=== PATIENT | male | born 1985 | race Caucasian/White ===

== ENCOUNTER 2021-10-04 06:51 | Day surgery (SDC) | payer OTHER ==
[2021-09-30 16:46] LABS: BASOPHILS # (AUTO) 0.1 X10'3 (0-0.2); BASOPHILS % (AUTO) 0.8 % (0-1); EOSINOPHILS # (AUTO) 0.1 X10'3 (0-0.9); EOSINOPHILS % (AUTO) 1.2 % (0-6); LYMPHOCYTES # (AUTO) 2.4 X10'3 (1.1-4.8); LYMPHOCYTES % (AUTO) 28.1 % (21-51); MEAN CORPUSCULAR HEMOGLOBIN 28.4 PG (27.0-31.0); MEAN CORPUSCULAR HGB CONC 33.1 g/dL (33.0-36.5); MEAN CORPUSCULAR VOLUME 85.9 FL (78-98); MEAN PLATELET VOLUME 8.1 FL (7.4-10.4); MONOCYTES # (AUTO) 0.6 X10'3 (0-0.9); NEUTROPHILS # (AUTO) 5.3 X10'3 (1.8-7.7); NEUTROPHILS % (AUTO) 62.9 % (42-75); PRE OP HEMATOCRIT 42.1 % (42.0-52.0); PRE OP HEMOGLOBIN 13.9 g/dL (14.0-17.9); PRE OP PLATELET COUNT 229 X10'3 (140-440); RED CELL DISTRIBUTION WIDTH 13.3 % (11.5-14.5)
[2021-09-30 16:59] LABS: ALBUMIN 4.1 G/DL (3.4-5.0); ALBUMIN/GLOBULIN RATIO 1.4 (1.1-1.5); ALKALINE PHOSPHATASE 68 IU/L (46-116); BLOOD UREA NITROGEN 22 MG/DL (7-18); BUN/CREATININE RATIO 18.2 (5.4-32.0); CALCIUM 8.8 MG/DL (8.5-10.1); CHLORIDE 105 MMOL/L (99-107); CREATININE 1.21 MG/DL (0.60-1.10); PRE OP ALT 23 U/L (30-65); PRE OP ANION GAP 4 (8-16); PRE OP AST 23 U/L (10-37); PRE OP BILIRUB, TOTAL 0.3 MG/DL (0.0-1.0); PRE OP GLUCOSE 83 MG/DL (70-104); PRE OP POTASSIUM 4.5 MMOL/L (3.4-5.1); PRE OP SODIUM 140 MMOL/L (135-145); TOTAL CARBON DIOXIDE 31.1 MMOL/L (24-32); TOTAL PROTEIN 7.1 G/DL (6.4-8.2); eGFR 68 ML/MIN
[~2021-10-04] VITALS: Ht 185.4 cm; Wt 94.3 kg
[~2021-10-04 06:51] MED LIST: NO HOME MEDS; cefazolin/dext.iso 2gm/50ml IV ONE; famotidine 20mg tablet PO ONE; ringers solution, lacted 1,000 ML IV SCH
[2021-10-04 07:20] VITALS: BP 116/70
[2021-10-04] MEDS ORDERED: labetalol 20mg/4ml (5mg/ml) syringe IV PRN (08:00)
[2021-10-04] MEDS ORDERED: ondansetron/PF 4mg/2ml inj IV PRN (08:00)
[2021-10-04] MEDS ORDERED: morphine 2 MG/ML inj. syringe IV PRN (08:00)
[2021-10-04] MEDS ORDERED: morphine 4 MG/ML inj SYRINge IV PRN (08:00)
[2021-10-04] MEDS ORDERED: hydrALAZINE 20mg/ml inj. IV PRN (08:00)
[2021-10-04] MEDS ORDERED: fentaNYL/PF 50MCG/1 ML 2ML syringe IV PRN ×2 (08:00)
[2021-10-04] MEDS ORDERED: ringers solution, lacted 1,000 ML IV SCH (08:00)
[2021-10-04] MEDS ORDERED: BUPIVAcaine 0.5% inj/PF 30 ML ONE (08:49)
[2021-10-04] MEDS ORDERED: LIDOcaine 1% 30ml preserv. free vial ONE (08:49)
[2021-10-04] MEDS ORDERED: MIDAZolam 1 MG/ML 5ML VIAL ONE (08:59)
[2021-10-04] MEDS ORDERED: fentaNYL /PF 50mcg/ml 5ml ampule ONE (08:59)
[2021-10-04] MEDS ORDERED: LIDOcaine 2% (20mg/ml) 5ml vial ONE (09:06)
[2021-10-04] MEDS ORDERED: rocuronium 10mg/ml inj IV ONE (09:07)
[2021-10-04] MEDS ORDERED: propofol inj 20 ML IV ONE (09:07)
[2021-10-04] MEDS ORDERED: glycopyrrolate 0.2mg/ml inj ONE (09:08)
[2021-10-04] MEDS ORDERED: ondansetron/PF 4mg/2ml inj ONE (09:09)
[2021-10-04] MEDS ORDERED: BUPIVAcaine 0.5% inj/PF 30 ml vial IJ ONE (09:16)
[2021-10-04 09:58] VITALS: BP 148/92
--- NOTE | 2021-10-04 09:58 | NUR ---
Received from OR via [facility] , accompanied by Anesthesiologist LYNN and report given by Anesthesiolgist. PATIENT WITH NO PAIN. 10L MASK ON WITH 100% SATURATIONS AT THIS TIME. 20G PIV IN LEFT UE Addendum: 10/04/21 at 1006 by Abel Ling RN, RN Amended: Links added.
[2021-10-04] MEDS ORDERED: HYDROcodone/acetaminophen 5mg/325mg tablet PO PRN (10:05)
[2021-10-04 10:10] VITALS: BP 138/93
[2021-10-04 10:20] VITALS: BP 127/88
[2021-10-04 10:30] VITALS: BP 128/83
[2021-10-04 10:40] VITALS: BP 129/79
--- NOTE | 2021-10-04 10:48 | NUR ---
ALL DISCHARGE CRITERIA HAS BEEN MET. VSS, PAIN AT A TOLERABLE LEVEL, VOIDING AND ABLE TO SAFELY AMBULATE AND TRANSFER SELF. IV TAKEN OUT WITHOUT ANY COMPLICATIONS. ALL DISCHARGE INSTRUCTIONS COVERED WITH PATIENT AND ALL QUESTIONS ANSWERED. PATIENT TAKEN OUT VIA WHEELCHAIR TO PERSONAL VEHICLE WHERE FAMILY/FRIEND DROVE PATIENT HOME. Addendum: 10/04/21 at 1118 by Abel Lign RN, RN Amended: Links added.
== END 2021-10-04 10:48 | disposition home or self-care (01) ==
LOC: PAS 06:51
PROVIDERS: ATTEND Surgery
DX: K40.90 Unilateral inguinal hernia, without obstruction or gangrene, not specified as recurrent (principal); Z20.822 Contact with and (suspected) exposure to COVID-19; Z87.891 Personal history of nicotine dependence; Z79.899 Other long term (current) drug therapy
CPT/HCPCS: 36415; 49650; 80053; 82948; 85025; 87635; C1781; C9803; J2250; J2405; J2704; J3010; J3490; J7030; J7120; S0020; S2900; Z7506; Z7508; Z7512; A4215; A4618